=== PATIENT | female | born 1950 | race Caucasian/White ===

== ENCOUNTER 2022-03-06 18:57 | Emergency (ER) | payer OTHER, MEDICARE ==
[~2022-03-06] VITALS: Ht 162.6 cm; Wt 93.0 kg
[2022-03-06 19:05] VITALS: BP 140/50
[2022-03-06] MEDS ORDERED: POTA-148 PO (19:11)
[2022-03-06] MEDS ORDERED: AMIO200T55 PO (19:11)
[2022-03-06] MEDS ORDERED: OMEG100021 PO (19:11)
[2022-03-06] MEDS ORDERED: WARF-35 PO (19:11)
[2022-03-06] MEDS ORDERED: ASPI-667 PO (19:11)
[2022-03-06] MEDS ORDERED: FURO40TA4 PO (19:11)
[2022-03-06] MEDS ORDERED: OXYB10TA26 PO (19:11)
[2022-03-06] MEDS ORDERED: LISI20TA21 PO (19:11)
[2022-03-06] MEDS ORDERED: METO-237 PO (19:11)
[2022-03-06] MEDS ORDERED: BIOT25005 PO (19:11)
[2022-03-06 19:15] VITALS: BP 140/50
--- NOTE | 2022-03-06 19:32 | ER.PDOC ---
General Chief Complaint: Extremities Stated Complaint: knee pain Time seen by MD: 19:29 Source: patient Exam Limitations: no limitations History of Present Illness Initial Comments This is a 68-year-old female with a past history of aortic and mitral valve replacements on warfarin and also history of a left total knee replacement pending revision. She was walking on some bleachers at a football game tonight in the snow and she slipped on the wet bleachers and had a twisting injury to the left lower extremity. She complains of pain above the knee more in the area of the femur. She states she fell directly onto the knee and did not strike her head. There is no headache or neck pain. MEDS Reported Medications [place]-3/Dha/Epa/Fish Oil (Fish Oil 1,000 mg Softgel) 1,000 Mg (120 Mg-180 Mg) Capsule, 1 CAP PO DAILY24 for 30 Days, #60 CAP 0 Refills 03/06/22 Biotin (BIOTIN) 2,500 Mcg Capsule, 59754 MCG PO DAILY24, CAPSULE 03/06/22 Aspirin (ASPIRIN) 81 Mg Tab.chew, 81 MG PO HS, TAB.CHEW 03/06/22 Amiodarone Hcl (CORDARONE) 200 Mg Tablet, 400 MG PO DAILY24, TABLET 03/06/22 Oxybutynin Chloride (OXYBUTYNIN CHLORIDE ER) 10 Mg Tab.er.24, 10 MG PO BID, TAB 03/06/22 Potassium Chloride (POTASSIUM CHLORIDE) 20 Meq Tab.er.prt, 20 MEQ PO EVERY OTHER DAY for WITH FUROSEMIDE 03/06/22 Furosemide (FUROSEMIDE) 40 Mg Tablet, 1 TAB PO DAILY, #30 TAB 5 Refills 03/06/22 Lisinopril (LISINOPRIL) 20 Mg Tablet, 1 TAB PO DAILY, #30 TAB 5 Refills 03/06/22 Metoprolol Succinate (METOPROLOL SUCCINATE) 50 Mg Tab.er.24h, 50 MG PO BID, TABLET 03/06/22 Warfarin Sodium (WARFARIN SODIUM) 5 Mg Tablet, 10 MG PO DAILY24, TAB 03/06/22 Past Medical History Medical History: coronary artery disease, cardiac problems, congestive heart failure, high cholesterol, hypertension Surgical History: coronary bypass surgery, , knee, other (Aortic and mitral valve replacements) Social History Alcohol Use: none Drug Use: none Review of Systems Constitutional: denies chills, denies fever Eyes: denies inflammation, denies pain Ears, Nose, Mouth, Throat: denies ear pain, denies epistaxis Respiratory: denies cough, denies wheezing Cardiovascular: denies chest pain, denies syncope Gastrointestinal: denies abdominal pain, denies vomiting Genitourinary: denies dysuria, denies hematuria Musculoskeletal: denies back pain, denies muscle pain Skin: denies lesions, denies rash Psychiatric/Neurological: denies headache, denies seizure Physical Exam General Appearance: No Apparent Distress Head: No Evidence of Injury Eyes: bilateral eye normal inspection, bilateral eye PERRL, bilateral eye EOMI Ears, Nose, Mouth, Throat: Hearing Grossly Normal, No Evidence of ENT Injury Neck: Non-Tender, Nexus criteria neg, Normal Inspection Cardiovascular/Respiratory: Regular Rate, Rhythm, Normal Peripheral Pulses, Murmur (1/6 systolic) Gastrointestinal: Normal Bowel Sounds, Non Tender Back: Normal Inspection Extremities: Other Skin: Normal Color, Warm/Dry Comments Left lower extremity: The patient holds the knee and flexion supported by a pillow behind the knee. She cannot tolerate any range of motion due to pain. There is hyperpigmentation of the skin overlying the left knee. Patient and states this is old since the surgery. There is marked tenderness to palpation over the mid femur no particular tenderness of the knee itself. Non tender over hip. No detectable joint effusion. Neurovascular intact distally. [place] Coma Score Best Eye Response: (4) Open Spontaneously Best Verbal Response: (5) Oriented Best Motor Response: (6) Obeys Commands Splinting Splinting : Hand-Made Type: orthoglass Splint: long-leg Pre-Proc Neuro Vasc Exam: normal Post-Proc Neuro Vasc Exam: normal Results/Orders Results/Orders Orders - AMA MURRAY MD Morphine Sulfate (Morphine Sulfate) (03/06/22 19:37) Ondansetron Hcl/Pf (Zofran) (03/06/22 19:37) Xr Femur Lt (03/06/22 19:37) Xr Knee Lt 3v (03/06/22 19:37) Ondansetron Hcl/Pf (Zofran) (03/06/22 19:44) Morphine Sulfate (Morphine Sulfate) (03/06/22 19:45) Cbc With Auto Diff (03/06/22 20:43) Comprehensive Metabolic Panel (03/06/22 20:43) PT (03/06/22 20:43) Vital Signs Date Time Temp Pulse Resp B/P (MAP) Pulse Ox O2 Delivery O2 Flow Rate FiO2 03/06/22 20:27 98.2 52 16 107/47 (67) 92 Room Air* 0 21 03/06/22 19:15 97.6 60 16 140/50 (80) 93 Room Air* 0 21 03/06/22 19:05 97.6 60 16 140/50 (80) 93 Room Air* 0 21 03/06/22 19:05 97.6 60 16 93 Administered Medications Medications (Trade) Dose Ordered Sig/Bhaskar Route PRN Reason Start Time Stop Time Status Last Admin Dose Admin Morphine Sulfate (Morphine Sulfate) 4 mg STAT STAT IV 03/06/22 19:37 03/06/22 19:41 DC 03/06/22 19:50 4 MG Ondansetron HCl (Zofran) 4 mg OT STAT IV 03/06/22 19:37 03/06/22 19:41 DC 03/06/22 19:51 4 MG Progress Progress PROCEDURE:XRAY FEMUR 2 VWS-LT COMPARISON:None. INDICATIONS:fall FINDINGS: BONES:Acute comminuted fracture of the distal femoral shaft with foreshortening and apex anterior angulation measuring approximately 40. No additional fracture is seen. JOINTS:No dislocation. Left total knee arthroplasty without evidence of hardware failure. SOFT TISSUES:Soft tissue swelling about the fracture. No radiopaque foreign body. OTHER:No additional findings. CONCLUSION: 1. Acute comminuted fracture of the distal left femoral shaft with foreshortening and apex anterior angulation. 2. Status post left total knee arthroplasty without evidence of hardware complication. Dictated by: Micah Pinzon M.D. On 03/06/2022 at 08:30 PM 2030: Spoke with Dr. Gama who is the partner of the patient's orthopedic surgeon Dr. Amaya. He recommends admitting her to [facility] to the hospitalist service with orthopedic consultation. 2034: Called [facility] transfer center. No beds available. 2044: Called [facility] transfer center. They will accept patient in transfer. ER DEPART Departure Time of Disposition: 20:55 Disposition: 02 SHORT TERM HOSPITAL Impression: Primary Impression: Closed left femoral fracture Condition: Stable If Transfer, List PT Destinati: [facility] Duration or Time Spent with Pa: 15 AMA MURRAY MD Mar 06, 2022 19:32
[2022-03-06] MEDS ORDERED: MORPHINE SULFATE IV STA (19:37)
[2022-03-06] MEDS ORDERED: ZOFRAN IV STA (19:37)
[2022-03-06] MEDS ORDERED: ZOFRAN ONE (19:44)
[2022-03-06] MEDS ORDERED: MORPHINE SULFATE ONE (19:45)
[2022-03-06 20:27] VITALS: BP 107/47
--- NOTE | 2022-03-06 20:34 | DIREP ---
PROCEDURE:XRAY FEMUR 2 VWS-LT COMPARISON:None. INDICATIONS:fall FINDINGS: BONES:Acute comminuted fracture of the distal femoral shaft with foreshortening and apex anterior angulation measuring approximately 40. No additional fracture is seen. JOINTS:No dislocation. Left total knee arthroplasty without evidence of hardware failure. SOFT TISSUES:Soft tissue swelling about the fracture. No radiopaque foreign body. OTHER:No additional findings. CONCLUSION: 1. Acute comminuted fracture of the distal left femoral shaft with foreshortening and apex anterior angulation. 2. Status post left total knee arthroplasty without evidence of hardware complication. Dictated by: Micah Pinzon M.D. On 03/06/2022 at 08:30 PM
--- NOTE | 2022-03-06 20:35 | DIREP ---
PROCEDURE:XRAY KNEE 3 VIEWS-LT COMPARISON:None. INDICATIONS:fall FINDINGS: BONES:Acute comminuted fracture of the distal femoral shaft with foreshortening and apex anterior angulation. No additional fracture is seen. JOINTS:No dislocation. Left total knee arthroplasty is in good alignment without evidence of hardware failure. SOFT TISSUES:There is soft tissue swelling about the fracture. No radiopaque foreign body. OTHER:No additional findings. CONCLUSION: 1. Status post left total knee arthroplasty without evidence of hardware complication. 2. Acute comminuted fracture of the left distal femoral shaft with foreshortening and apex anterior angulation. Dictated by: Micah Pinzon M.D. On 03/06/2022 at 08:33 PM
--- NOTE | 2022-03-06 20:40 | NUR ---
SPLINT THIS AUDITING CLERK AND NANCY RN ATTEMPTED TO PLACE KNEE IMMOBLIZER ON PATIENT. PATIENT'S LEG IS TOO SHORT AND THIGHS ARE TOO BIG FOR IMMOBLIZER. ORTHOGLASS PLACED WITH COBAND WRAPPED AROUND LEG. EDP DR MURRAY NOTIFIED AND APPROVED OF SPLINT
--- NOTE | 2022-03-06 20:45 | NUR ---
[facility] NO BEDS AT [facility]
--- NOTE | 2022-03-06 20:45 | NUR ---
[facility] EDP ON PHONE WITH [facility] ER ABOUT POSSIBLE TRANSFER
--- NOTE | 2022-03-06 20:48 | NUR ---
[facility] EDP ON PHONE WITH [facility] ER ABOUT POSSIBLE TRANSFER
--- NOTE | 2022-03-06 21:12 | NUR ---
Report called to Rocael at [facility]
[2022-03-06 21:48] LABS: CARBON DIOXIDE 17.7 mmol/L (20.0-32)
== END 2022-03-06 21:35 | disposition short-term general hospital (02) ==
LOC: ER 18:57
DX: S72.352A Displaced comminuted fracture of shaft of left femur, initial encounter for closed fracture (principal); X50.1XXA Overexertion from prolonged static or awkward postures, initial encounter; Y93.61 Activity, american tackle football; Y92.89 Other specified places as the place of occurrence of the external cause; Y99.8 Other external cause status; E78.00 Pure hypercholesterolemia, unspecified; I11.0 Hypertensive heart disease with heart failure; I25.10 Atherosclerotic heart disease of native coronary artery without angina pectoris; I50.9 Heart failure, unspecified; Z95.1 Presence of aortocoronary bypass graft; Z95.2 Presence of prosthetic heart valve; Z96.653 Presence of artificial knee joint, bilateral
CPT/HCPCS: 99285; 96374; 29505; 96375; 73552; 73562; 80053; 36415; 85610; J2405; 73550-LT